=== PATIENT | female | born 1940 | race Caucasian/White ===

== ENCOUNTER 2017-02-26 09:37 | Inpatient (IN) ==
--- NOTE | 2017-02-26 10:03 | EKG Report ---
Stationary ECG Study [facility] ER Test Date: 02/26/2017 9:54:24 AM Pat Name: CONCHIS PINEDA Department: Room: Gender: F Lab Intern: : 1940 Requested by: Kole Perez Order Number: [id number] Reading MD: ABDOUL KRISHNA Intervals [place] Rate: 84 P: 999 IN: 0 QRS: 144 QRSD: 101 T: 190 QT: 369 QTc: 410 Interpretive Statements Sinus arrhythmia LOW QRS VOLTAGE IN PRECORDIAL LEADS ARM LEADS REVERSED MODERATE T-WAVE ABNORMALITY, CONSIDER INFERIOR ISCHEMIA Electronically Signed On 02-26-17 12:36:51 CDT by ABDOUL KRISHNA [id number]
[2017-02-26 10:17] LABS: Basophils % 0.1 % (0.0-0.8); Eosinophils # 0.3 10*3/uL (0.0-0.87); Eosinophils % 3.2 % (0.00-10.9); Hematocrit 31.9 VOL% (35.7-47.0); Immature Granulocytes % 0.4 %; Immature Granulocytes Absolute 0.04 #; Lymphocytes # 2.2 10*3/uL (1.4-4.0); Lymphocytes % 23.9 % (21.3-54.2); Mean Corpuscular HGB Conc 31.3 GM/DL (32-36); Mean Corpuscular Hemoglobin 30 PG (27-34); Mean Corpuscular Volume 94.7 FL (87-102); Mean Platelet Volume 9.1 FL (9.6-12.0); Monocytes # 0.7 10*3/uL (0.11-0.8); Monocytes % 7.1 % (1.7-12.7); Neutrophils % 65.3 % (38.7-73.9); Platelet Count 207 T/CUMM (130-400); Red Blood Count 3.37 MC/CUMM (3.8-5.5); Red Cell Distribution Width 14.3 % (9.3-17.3); White Blood Count 9.3 T/CUMM (4-12)
--- NOTE | 2017-02-26 10:17 | Emergency Department Note ---
Khalif Luz Brooke, am scribing for, and in the presence of, Kole Austin MD 10:12 . Geovanna Luz James D, MD, personally performed the services described in this documentation, ascribed by Mariya Cuadra in my presence, and it is both accurate and complete . Arrival - Arrival Chief Complaint: Shortness of Breath Stated Complaint: short of breath ED Nursing Triage Note: has been slightly short of breath for 2 days does have a hisotry of COPD CHF NIDM denies fever has been coughing but nothing is coming up sent by home health this morning for shortness of breath and 88% O2 sats pt is allergic to procardia not short of breath at this time Mode of Arrival: Stretcher Limitations: No Limitations Source: Patient, EMS, RN Notes Reviewed Time Seen by Provider: 02/26/17 10:05 - History of Present Illness HPI Narrative: Patient is a 76 year old female brought into the ED by EMS with c/o shortness of breath. Patient says the shortness of breath started this morning. She had a visit from her home health nurse and says her O2 sat dropped so she was told to come to the ED. She says she always sleeps sitting up. Patient also has a productive cough that started this morning. She denies having any chest pain, fever, melena, blood in stool, lower extremity edema, or wheezing. Patient has PMHx of afib, CHF, aortic valve replacement(3 years ago), bypass, HTN, depression, CVA, IDDM, recurring urinary tract infections, and right BKA. Patient is currently taking Warfarin. Allergies/Adverse Reactions: Allergies Allergy/AdvReac Type Severity Reaction Status Date / Time nifedipine [From Procardia] Allergy Severe Swelling Verified 02/26/17 10:01 of Lip/Tongue/Throat Home Medications: Home Medications Medication Instructions Recorded Confirmed Type Atorvastatin [Lipitor] 40 mg PO QAM 08/14/16 02/26/17 History Carvedilol 25 mg PO BID 08/14/16 02/26/17 History Cyclobenzaprine [Flexeril] 10 mg PO TID PRN 08/14/16 02/26/17 History Furosemide Tab [Lasix Tab] 40 mg PO DAILY 08/14/16 02/26/17 History Insulin Lispro [HumaLOG] See Protocol SUBCUT QOTHER DAY PRN 08/14/16 02/26/17 History Insulin NPH/Regular 70/30 [HumuLIN 20 unit SUBCUT 1700 08/14/16 02/26/17 History 70/30] Levothyroxine Tab [Synthroid Tab] 125 mcg PO DAILY 08/14/16 02/26/17 History Pantoprazole Tab [Protonix Tab] 40 mg PO DAILY 08/14/16 02/26/17 History Potassium Chloride [Klor-Con M20] 20 meq PO DAILY 08/14/16 02/26/17 History Warfarin [Coumadin] 5 mg PO MOWEFR 08/14/16 02/26/17 History Metformin HCl 1,000 mg PO BID 02/26/17 02/26/17 History Multivitamin with Minerals 1 each PO DAILY 02/26/17 02/26/17 History [Multivitamins with Minerals] Sertraline [Zoloft] 100 mg PO DAILY 02/26/17 02/26/17 History Warfarin [Coumadin] 4 mg PO SUTUTHSA 02/26/17 02/26/17 History Review of System - Review of System 12 point system: reviewed and no additional remarkable complaints except as stated - Review of System Constitutional: Absent: fever Respiratory: Present: cough (productive), other (shortness of breath). Absent: respiratory distress, wheezing Cardiovascular: Absent: chest pain, edema Gastrointestinal: Absent: melena, hematochezia Skin: Absent: rash Medical,Surgical,& Family Hx - Medical History Cardio: History of: Cardiac Dysrhythmia (AFIB), CHF, Hypertension Psychological: History of: Depression Neurology: History of: Cerebrovascular Accident Endocrine: History of: Diabetes Mellitus (IDDM) Respiratory: History of: Respiratory Problems (Home 02 at 2L) Genitourinary: History of: Recurring Urinary Tract Infections Musculoskeletal: History of: Amputation (right BKA) - Social History Smoking Status: Never smoker Exam Vital Signs: Vital Signs Temperature 96.9 F L 02/26/17 09:39 Pulse Rate 76 02/26/17 11:31 Respiratory Rate 18 02/26/17 11:26 Blood Pressure 130/54 02/26/17 09:39 O2 Sat by Pulse Oximetry 2 L 02/26/17 11:31 GENERAL: This is a well-nourished well-developed white female, chronically ill- appearing, in no apparent distress. VITAL SIGNS: Reviewed HEENT: Head is atraumatic and normocephalic. Pupils are equal round react to light. Extraocular movements are intact. Oropharynx is benign with moist mucous membranes. NECK: Neck is soft and supple without tenderness. There are no masses. There is no lymphadenopathy. LUNGS: Rhonchi in the right base without retractions. Chest rises symmetrically. There is no chest wall tenderness. CV: Heart is irregularly irregular without murmurs rubs or gallops. ABDOMEN: Abdomen is soft, nontender to palpation. There are no abdominal abnormal masses palpated. There is no organomegaly. Bowel sounds are present and active. SKIN: Skin is warm and dry. No rash. EXTREMITIES: Patient has full range of motion without tenderness. There is no pedal edema. NEUROLOGIC: Awake alert and oriented 4. Cranial nerves II through XII are grossly intact. Motor is 5 over 5 in all extremities bilaterally. Course - Consultations Consultation #1: Discussed with hospitalist. Patient will be admitted to their service. Time: 12:39 Results - Labs CBC & BMP: 02/26/17 10:08 02/26/17 10:08 Lab Results: I have reviewed the patients labs Labs: Laboratory Tests 02/26/17 02/26/17 10:08 10:08 INR 3.0 B-Natriuretic Peptide 30 - EKG EKG results: interpreted by ERMD - Impressions Atrial fib with rate of 84, low voltage QRS, left posterior fascicular block, T- wave inversion inferiorly. - Diagnostic Findings Procedure: Chest x-ray: image reviewed by me (Bibasilar infiltrates.), CT - chest: image reviewed by me, report reviewed by me (CT chest PA gram: No evidence of pulmonary embolus. Patient has right lower lobe pneumonia.) Disposition Clinical Impression: History of CHF (congestive heart failure), Right lower lobe pneumonia, Atrial fibrillation, Chronic anticoagulation Case discussed with: patient Disposition: Still a Patient Condition: Stable Time of Disposition: 12:38
--- NOTE | 2017-02-26 10:50 | XRay Report ---
Exam: XR chest 1V Date: 02/26/2017 10:01 AM Comparison: 09/04/2016 Indication: Shortness of breath Technique:[Portable AP sitting chest] Findings: Stable cardiomegaly in patient with prior median sternotomy and cardiac valve replacement. Arterial calcifications are noted. Limited expiratory chest with chronic scarring and reduced atelectasis at the lung bases. Persistent relative elevation of the right hemidiaphragm. Stable mediastinum with degenerative changes especially in the right shoulder. Impression: Limited expiratory chest. Prior median sternotomy and cardiac valve replacement with chronic scarring and reduced atelectasis at the lung bases with persistent relative elevation of the right hemidiaphragm. PROCEDURE INTERPRETED AT [facility] DEPARTMENT OF RADIOLOGY Final Report Signed by: Dr. Cynthia Babin
[2017-02-26 11:00] LABS: PT Patient Result 34.6 SECS
[2017-02-26] MEDS ORDERED: LEVOFLOXACIN INJ 500 MG in PREMIX 1 EACH IV STA (11:06)
[2017-02-26] MEDS ORDERED: ALBUTEROL 2.5 MG/3 ML NEB RESP TX STA (11:06)
[2017-02-26 11:07] LABS: Alanine Aminotransferase 19 U/L (13-56); Albumin 2.8 G/DL (3.4-5.0); Alkaline Phosphatase 83 U/L (45-117); Aspartate Amino Transferase 12 U/L (0-37); Bilirubin,Total < 0.39 MG/DL (0.2-1.0); Blood Urea Nitrogen 34 MG/DL (7-18); Calcium 8.9 MG/DL (8.5-10.1); Glucose 161 MG/DL (74-106); Osmolality,Calculated 291.3 MOS/KG (273-304); Potassium 3.9 MMOL/L (3.5-5.1); Sodium 141 MMOL/L (136-145); Total Protein 6.2 G/DL (6.4-8.3); Troponin I Only < 0.015 NG/ML (0.00-0.045)
[2017-02-26] MEDS ORDERED: LEVOFLOXACIN INJ 100 ML IV ONE (11:50)
--- NOTE | 2017-02-26 12:03 | CT Report ---
Exam: CT chest with contrast, PE study Date: 02/26/2017 Comparison: Chest x-ray 02/26/2017 Reason: Shortness of breath Technique: Axial images of the chest were obtained after administration of 80 cc of IV Omnipaque 350 intravenous contrast. Coronal reformatted images were also acquired. The study was performed per pulmonary embolism protocol. Total DLP: 759.00 Findings: The heart is enlarged with prior median sternotomy and aortic valve replacement. Coronary artery calcifications are identified. No evidence of aortic dissection or pulmonary emboli. There is suboptimal contrast in some of the subsegmental pulmonary arteries. 22 mm right thyroid nodule which contains multiple calcifications. Calcified nodes are identified. Calcified granulomata in the liver, spleen, and lungs. Relative elevation of the right hemidiaphragm with more prominent adjacent atelectasis/infiltration especially in the right lower lobe with minimal pleural thickening posterior laterally. Additional diffuse groundglass opacities are noted. Degenerative changes are noted. Impression: No definite pulmonary emboli are identified. The scans are minimally limited by motion artifact. Status post median sternotomy and aortic valve replacement with cardiomegaly and coronary artery calcifications. No evidence of aortic dissection. Relative elevation of the right hemidiaphragm with atelectasis/infiltration especially in the right lower lobe which can be seen with pneumonia with associated minimal pleural thickening. However follow-up chest x-ray is recommended to document clearing and exclude additional underlying pathology. No obvious mass is identified. Old healed granulomatous disease with probable chronic scarring. 22 mm indeterminate right thyroid nodule which contains multiple calcifications. Thyroid ultrasound recommended for further evaluation. This CT exam was performed using one or more the following dose reduction techniques: Automated exposure control, adjustment of the MA and/or KV according to patient size, or use of iterative reconstruction technique. PROCEDURE INTERPRETED AT [facility] DEPARTMENT OF RADIOLOGY Final Report Signed by: Dr. Cynthia Babin
--- NOTE | 2017-02-26 13:39 | Hospitalist History & Physical ---
Assessment and Plan (1) Atrial fibrillation Status: Acute Assessment and plan: The patient is currently anticoagulated with Coumadin. Patient's INR was noted at 3.0. We will consult pharmacy to assist with the management of Coumadin. Current Visit: Yes (2) Right lower lobe pneumonia Status: Acute Assessment and plan: Chest x-ray significant for right lower lobe pneumonia. Blood cultures have been obtained. We will continue empiric antibiotic coverage and await blood culture results. In addition, we will start inhaled bronchodilator treatments and provide supportive care. Current Visit: Yes (3) Diabetes Status: Acute Assessment and plan: We will start Accu-Cheks before meals and at bedtime with sliding scale coverage. We will obtain hemoglobin A1c. Current Visit: No (4) Urinary tract infection Status: Acute Current Visit: No History of Present Illness Chief complaint: Shortness of breath History of present illness: This is a chronically ill 74-year-old female that presented to the ED at [facility] this morning via EMS for the evaluation of shortness of breath. The patient has a very complex medical history significant for atrial fibrillation, chronic heart failure, chronic obstructive pulmonary disease hypertension, depression, cerebrovascular accident, insulin- dependent diabetes mellitus, chronic urinary tract infections, peripheral vascular disease. 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 The patient reported the onset of symptoms on the morning of presentation. The patient had been evaluated by a home health nurse. She was discovered to be hypoxic despite the use of home oxygen and told to come to the ED for further evaluation. The patient was seen and assessed at the time of ED presentation. Labs were obtained which was significant for red blood cell count at 3.37, hemoglobin 10.0 , hematocrit 31.9, and platelet count of 207. Coagulation panel reported INR 3.0 and PT 34.6. Chemistry panel reported sodium at 141, potassium 3.9, chloride 99, carbon dioxide 35, BUN 34, creatinine 0.90, glucose 161, calcium 8.9, troponin at less than 0.05, BNP of 30, and albumin at 2.8. Chest x-ray reported per median sternotomy and cardiac valve replacement with chronic scarring and reduced atelectasis at the lung bases with persistent relative elevation of the right hemidiaphragm. CT chest identified no definite pulmonary emboli. After brief discussion with both Dr. Austin and Dr. Teague, the patient will be admitted to the hospitalist service for continuation of care. Home medications have been reviewed and reconciled. CODE STATUS discussed; the patient is a FULL CODE. Home Medications Medication Instructions Recorded Confirmed Type Atorvastatin [Lipitor] 40 mg PO QAM 08/14/16 02/26/17 History Carvedilol 25 mg PO BID 08/14/16 02/26/17 History Cyclobenzaprine [Flexeril] 10 mg PO TID PRN 08/14/16 02/26/17 History Furosemide Tab [Lasix Tab] 40 mg PO DAILY 08/14/16 02/26/17 History Insulin Lispro [HumaLOG] See Protocol SUBCUT QOTHER DAY PRN 08/14/16 02/26/17 History Insulin NPH/Regular 70/30 [HumuLIN 20 unit SUBCUT 1700 08/14/16 02/26/17 History 70/30] Levothyroxine Tab [Synthroid Tab] 125 mcg PO DAILY 08/14/16 02/26/17 History Pantoprazole Tab [Protonix Tab] 40 mg PO DAILY 08/14/16 02/26/17 History Potassium Chloride [Klor-Con M20] 20 meq PO DAILY 08/14/16 02/26/17 History Warfarin [Coumadin] 5 mg PO MOWEFR 08/14/16 02/26/17 History Metformin HCl 1,000 mg PO BID 02/26/17 02/26/17 History Multivitamin with Minerals 1 each PO DAILY 02/26/17 02/26/17 History [Multivitamins with Minerals] Sertraline [Zoloft] 100 mg PO DAILY 02/26/17 02/26/17 History Warfarin [Coumadin] 4 mg PO SUTUTHSA 02/26/17 02/26/17 History Allergies Allergy/AdvReac Type Severity Reaction Status Date / Time nifedipine [From Procardia] Allergy Severe Swelling Verified 02/26/17 10:01 of Lip/Tongue/Throat Medical,Surgical,& Family Hx - Medical History Cardio: History of: Cardiac Dysrhythmia (AFIB), CHF, Hypertension Psychological: History of: Depression Neurology: History of: Cerebrovascular Accident Endocrine: History of: Diabetes Mellitus (IDDM) Respiratory: History of: Respiratory Problems (Home 02 at 2L) Genitourinary: History of: Recurring Urinary Tract Infections Musculoskeletal: History of: Amputation (right BKA) - Social History Smoking Status: Never smoker 12 point system: reviewed and no additional remarkable complaints except as stated Exam - Constitutional Vitals: Period Temp Pulse Resp BP Sys/Porter Pulse Ox Last 24 Hr 96.9 F 76-91 16-18 130/54 2-94 General appearance: morbidly obese - Head Head exam: Present: normal inspection, normocephalic, atraumatic - Eye Eye exam: Present: EOMI. Absent: conjunctival injection Pupils: Present: MIN, normal accommodation - ENT ENT exam: Present: normal exam, normal external ear exam, normal oropharynx - Neck Neck exam: Present: normal inspection. Absent: lymphadenopathy, meningismus, thyromegaly - Respiratory Respiratory exam: Present: rhonchi (Right lung base). Absent: clear to auscultation bilaterally, stridor, wheezes - Cardiovascular Cardiovascular exam: Present: irregular rhythm - GI/Abdominal GI/Abdominal exam: Present: normal bowel sounds, soft - Extremities Exam Extremities exam: Present: other (Right BKA) - Back Exam Back exam: Present: normal inspection - Neurological Exam Neurological exam: Present: alert, oriented X3, CN II-XII intact - Psychiatric Psychiatric exam: Present: normal affect - Skin Skin exam: Present: normal color, warm Results - Labs CBC & BMP: 02/26/17 10:08 02/26/17 10:08 Lab Results: I have reviewed the past 24 hour labs
[2017-02-26] MEDS ORDERED: DEXTROSE 50% 25 GM/50 ML VIAL IV PRN (13:49)
[2017-02-26] MEDS ORDERED: GLUCAGON 1 MG VIAL IM PRN (13:49)
[2017-02-26] MEDS ORDERED: ALBUTEROL/IPRATROPIUM 3 ML NEB RESP TX PRN (15:14)
[2017-02-26] MEDS ORDERED: ALBUTEROL 2.5 MG/3 ML NEB RESP TX PRN (15:14)
[2017-02-26] MEDS ORDERED: LEVOFLOXACIN INJ 750 MG in PREMIX 1 EACH IV SCH (16:00)
[2017-02-26] MEDS ORDERED: CYCLOBENZAPRINE 10 MG TABLET PO PRN (17:24)
[2017-02-26] MEDS: INSULIN REGULAR 100 UNIT/ML SUBCUT SCH ×2 (17:33→21:43)
[2017-02-26] MEDS ORDERED: WARFARIN 4 MG TABLET PO SCH (18:00)
[2017-02-26] MEDS: CARVEDILOL 25 MG TABLET PO SCH (21:43)
[2017-02-26] MEDS: metFORMIN 500 MG TABLET PO SCH (21:43)
[2017-02-27 05:22] LABS: Basophils % 0.3 % (0.0-0.8); Eosinophils # 0.3 10*3/uL (0.0-0.87); Eosinophils % 2.9 % (0.00-10.9); Hematocrit 32.6 VOL% (35.7-47.0); Hemoglobin 10.2 GM/DL (12.0-16.0); Immature Granulocytes % 0.4 %; Immature Granulocytes Absolute 0.04 #; Lymphocytes # 2.1 10*3/uL (1.4-4.0); Lymphocytes % 21.8 % (21.3-54.2); Mean Corpuscular HGB Conc 31.3 GM/DL (32-36); Mean Corpuscular Hemoglobin 29 PG (27-34); Mean Corpuscular Volume 93.9 FL (87-102); Mean Platelet Volume 9.5 FL (9.6-12.0); Monocytes # 0.7 10*3/uL (0.11-0.8); Neutrophils # 6.5 10*3/uL (1.4-7.4); Neutrophils % 67.6 % (38.7-73.9); Platelet Count 214 T/CUMM (130-400); Red Blood Count 3.47 MC/CUMM (3.8-5.5); Red Cell Distribution Width 14.3 % (9.3-17.3); White Blood Count 9.6 T/CUMM (4-12)
[2017-02-27 05:48] LABS: Calcium 9.3 MG/DL (8.5-10.1); Osmolality,Calculated 286.3 MOS/KG (273-304); Potassium 4.2 MMOL/L (3.5-5.1)
--- NOTE | 2017-02-27 07:55 | Physician Query Form ---
CLICK EDIT DOCUMENT TO SELECT QUERY ANSWER --> OK --> SIGN Gia Jordan RN, CCDS Certified Clinical Motor Teacher W) [phone] (f) [phone] [email or web address] PROVIDERS: Make your selection(s) from the choices in EACH section by typing an "x" and enter comments in the comment section. Please use your independent medical judgment in providing your response. This request does not imply that any particular answer is desired or expected. CLINICAL INDICATORS: (Providers should not edit this section) The medical record indicates that the patient was admitted with COPD exacerbation, "Home 02 at 2L", "discovered to be hypoxic despite the use of home oxygen", the patient was admitted and placed on 2 liters per NC. Based on the above, could you clarify the appropriate diagnosis, if significant , that supports the above abnormalities and additional evaluation, monitoring, and/or treatment rendered: ( X) Patient was treated or monitored for chronic respiratory failure ( ) Patient was not treated or monitored for chronic respiratory failure ( ) Other, please specify: ( ) Clinically unable to determine COMMENTS: PLEASE ALSO DOCUMENT RESPONSE IN PROGRESS NOTES AND/OR DISCHARGE SUMMARY Use of terms such as suspected, likely, or probable (associated with a specific diagnosis that is being evaluated, monitored, or treated as if it exists) are acceptable and can be restated in the discharge summary if not ruled out. MTDD
--- NOTE | 2017-02-27 08:19 | XRay Report ---
XR chest 1V portable Indication: Shortness of breath Comparison: 26 February 2017 Findings: The heart and mediastinum are stable in size and configuration with cardiac surgery changes. The pulmonary vascularity is normal in caliber. There is increased bilateral lower lung density, similar to previous exam. No other lung infiltrates, effusions, pneumothorax or other abnormality is demonstrated. Impression: No significant changes. PROCEDURE INTERPRETED AT [facility] DEPARTMENT OF RADIOLOGY Final Report Signed by: Dr. Zafar Mckeon
[2017-02-27] MEDS ORDERED: DEXTROSE 50% 25 GM/50 ML VIAL IV PRN (08:29)
[2017-02-27] MEDS ORDERED: GLUCAGON 1 MG VIAL IM PRN (08:29)
[2017-02-27] MEDS: ATORVASTATIN 40 MG TABLET PO SCH (08:55)
[2017-02-27] MEDS: metFORMIN 500 MG TABLET PO SCH ×2 (08:55→22:50)
[2017-02-27] MEDS: PANTOPRAZOLE 40 MG TABLET PO SCH (08:55)
[2017-02-27] MEDS: LEVOTHYROXINE 125 MCG TABLET PO SCH (08:55)
[2017-02-27] MEDS: MULTIVITAMIN (CENTRUM) TABLET PO SCH (08:55)
[2017-02-27] MEDS: CARVEDILOL 25 MG TABLET PO SCH ×2 (08:55→22:50)
[2017-02-27] MEDS: SERTRALINE 100 MG TABLET PO SCH (08:55)
[2017-02-27] MEDS: FUROSEMIDE 40 MG TABLET PO SCH (08:55)
[2017-02-27] MEDS: POTASSIUM CHLORIDE 20 MEQ TABLET PO SCH (08:55)
--- NOTE | 2017-02-27 08:55 | Hospitalist Progress Note ---
Assessment and Plan - Time spent with patient Time spent with patient: Greater than 30 minutes (1) Right lower lobe pneumonia Status: Acute Assessment and plan: Continue IV levaquin. Resp care. NEB treatment. Current Visit: Yes (2) Diabetes Status: Acute Assessment and plan: Continue insulin Current Visit: No (3) HTN (hypertension) Status: Acute Assessment and plan: Resume home meds. Current Visit: No (4) Coumadin toxicity Status: Acute Assessment and plan: Monitor INR Current Visit: No (5) Atrial fibrillation Status: Acute Current Visit: Yes (6) Chronic anticoagulation Status: Acute Current Visit: Yes (7) Hx of CABG Status: Acute Current Visit: No (8) Hx of right BKA Status: Acute Current Visit: No Hospitalist: Subjective Interval history: No overnight acute event. Breathing better. On IV antibiotics and NEB treatment for pneumonia. Appetite is ok. Deny fever or diarrhea. Exam - Constitutional Vitals: Period Temp Pulse Resp BP Sys/Porter Pulse Ox Last 24 Hr 96.1 F-98.2 F 76-102 16-22 94-149/54-88 2-98 Exam: General: Lying in bed supine. pale. AAOx3 HEENT: AT NC EOMI PERRLA Normal lips and gum. Lungs: Decreased breath sound at b/l lower lobes. No wheezing. Abd: +BS NT ND Skin: Pale. No hives. Neuro: Lying in bed. AAOx3. Results - Labs CBC & BMP: 02/27/17 04:27 02/27/17 04:27
[2017-02-27] MEDS: INSULIN REGULAR 100 UNIT/ML SUBCUT SCH ×3 (08:56→22:51)
[2017-02-27] MEDS ORDERED: DEXTROSE 50% 25 GM/50 ML SYRINGE IV PRN (09:00)
[2017-02-27] MEDS: LEVOFLOXACIN INJ 750 MG in PREMIX 1 EACH IV SCH (12:31)
[2017-02-27] MEDS ORDERED: PROMETHAZINE 25 MG/1 ML VIAL IM PRN (14:36)
[2017-02-27] MEDS ORDERED: ONDANSETRON 4 MG/2 ML VIAL IM PRN (14:36)
[2017-02-27] MEDS ORDERED: ONDANSETRON 4 MG/2 ML VIAL IV PRN (14:45)
[2017-02-27] MEDS ORDERED: INSULIN NPH/REGULAR 70/30 100 UNIT/ML SUBCUT SCH (17:00)
[2017-02-27] MEDS ORDERED: WARFARIN 5 MG TABLET PO SCH (18:00)
[2017-02-27] MEDS ORDERED: GABAPENTIN 600 MG TABLET PO PRN (19:33)
[2017-02-27] MEDS: VITAMIN A & D OINT 56.7 GM TUBE TOP SCH ×2 (22:51→22:52)
[2017-02-28 03:47] LABS: Calcium 9.1 MG/DL (8.5-10.1); Magnesium 1.9 MG/DL (1.8-2.4); Osmolality,Calculated 289.1 MOS/KG (273-304); Potassium 4.4 MMOL/L (3.5-5.1)
[2017-02-28 06:16] LABS: INR 2.9
[2017-02-28 06:17] LABS: PT Patient Result 33.2 SECS
[2017-02-28] MEDS: INSULIN REGULAR 100 UNIT/ML SUBCUT SCH ×2 (09:34→12:46)
[2017-02-28] MEDS: CARVEDILOL 25 MG TABLET PO SCH (09:35)
[2017-02-28] MEDS: MULTIVITAMIN (CENTRUM) TABLET PO SCH (09:35)
[2017-02-28] MEDS: metFORMIN 500 MG TABLET PO SCH (09:35)
[2017-02-28] MEDS: PANTOPRAZOLE 40 MG TABLET PO SCH (09:36)
[2017-02-28] MEDS: FUROSEMIDE 40 MG TABLET PO SCH (09:36)
[2017-02-28] MEDS: LEVOTHYROXINE 125 MCG TABLET PO SCH (09:36)
[2017-02-28] MEDS: SERTRALINE 100 MG TABLET PO SCH (09:36)
[2017-02-28] MEDS: VITAMIN A & D OINT 56.7 GM TUBE TOP SCH (09:36)
[2017-02-28] MEDS: POTASSIUM CHLORIDE 20 MEQ TABLET PO SCH (09:36)
[2017-02-28] MEDS: ATORVASTATIN 40 MG TABLET PO SCH (09:36)
--- NOTE | 2017-02-28 12:07 | Discharge Summary ---
<Nohemy Cotton - Last Filed: 02/28/17 12:07> Hospital Course - Hospital Course Hospital Course: This is a chronically ill 74-year-old female that presented to the ED at [facility] on the morning of February 26, 2017 via EMS for the evaluation of shortness of breath. The patient has a very complex medical history significant for atrial fibrillation, chronic heart failure, chronic obstructive pulmonary disease hypertension, depression, cerebrovascular accident , insulin-dependent diabetes mellitus, chronic urinary tract infections, peripheral vascular disease. 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 The patient reported the onset of symptoms on the morning of presentation. The patient had been evaluated by a home health nurse. She was discovered to be hypoxic despite the use of home oxygen and told to come to the ED for further evaluation. The patient was seen and assessed at the time of ED presentation. Labs were obtained which was significant for red blood cell count at 3.37, hemoglobin 10.0 , hematocrit 31.9, and platelet count of 207. Coagulation panel reported INR 3.0 and PT 34.6. Chemistry panel reported sodium at 141, potassium 3.9, chloride 99, carbon dioxide 35, BUN 34, creatinine 0.90, glucose 161, calcium 8.9, troponin at less than 0.05, BNP of 30, and albumin at 2.8. Chest x-ray reported per median sternotomy and cardiac valve replacement with chronic scarring and reduced atelectasis at the lung bases with persistent relative elevation of the right hemidiaphragm. CT chest identified no definite pulmonary emboli. The patient was subsequently admitted to the hospitalist service for continuation of care. Blood cultures were obtained and empiric antibiotic coverage was initiated. The patient was gently rehydrated and inhaled bronchodilators were administered. The patient's condition slowly improved. Blood cultures reported no growth to date. The patient's condition is stable. She has not experienced any significant overnight events. Today, we feel that she is indeed appropriate for discharge to follow-up with her primary care physician as directed. Diagnosis - Discharge Diagnosis (1) Atrial fibrillation Status: Acute (2) Right lower lobe pneumonia Status: Acute (3) Diabetes Status: Acute (4) Urinary tract infection Status: Acute Specialty Discharge - Follow Up or Referrals Discharge Plan - Discharge Data Disposition: Home Health Service - Discharge Medications New Insulin NPH/Regular 70/30 [HumuLIN 70/30] 20 unit SUBCUT 1700 #1000 unit Continue Warfarin [Coumadin] 5 mg PO MOWEFR Levothyroxine Tab [Synthroid Tab] 125 mcg PO DAILY Carvedilol 25 mg PO BID Pantoprazole Tab [Protonix Tab] 40 mg PO DAILY Furosemide Tab [Lasix Tab] 40 mg PO DAILY Cyclobenzaprine [Flexeril] 10 mg PO TID PRN PRN Reason: Muscle Spasm Insulin Lispro [HumaLOG] See Protocol SUBCUT QOTHER DAY PRN PRN Reason: Glucose Management Warfarin [Coumadin] 4 mg PO SUTUTHSA Multivitamin with Minerals [Multivitamins with Minerals] 1 each PO DAILY Sertraline [Zoloft] 100 mg PO DAILY Gabapentin Cap/Tab [Neurontin Cap/Tab] 600 mg PO TID PRN PRN Reason: Pain Atorvastatin [Lipitor] 40 mg PO QAM Potassium Chloride [Klor-Con M20] 20 meq PO DAILY Metformin HCl 1,000 mg PO BID - Follow Up or Referral - Forms/Instructions Instructions: Warfarin (By mouth) Exam - Constitutional Vitals: Period Temp Pulse Resp BP Sys/Porter Pulse Ox Last 24 Hr 96.9 F-98.1 F 77-108 18-20 127-142/60-70 93-99 Discharge Results Procedures and tests throughout hospitalization: Pending Orders 02/26/17 11:56 Blood Culture Stat 02/26/17 15:14 Influenza A & B Antigen Panel Stat Legionella Ag, Urine Stat Procalcitonin, S Stat 03/01/17 04:00 BMP w/ Mg [Basic Metabolic Panel w/Mg] IN AM Comp Blood Count Auto Diff IN AM Labs on day of discharge: Labs from last 24 hours 02/28/17 02/28/17 02/28/17 07:32 02:39 02:39 INR 2.9 PT Patient/Control Mix 33.2 Sodium 142 Potassium 4.4 Chloride 99 Carbon Dioxide 34 H Anion Gap 13.4 BUN 31 H Creatinine 0.90 GFR Calculation 74 BUN/Creatinine Ratio 34.00 H Glucose 102 POC Glucose 82 Calculated Osmolality 289.1 Calcium 9.1 Magnesium 1.9 02/27/17 02/27/17 21:16 16:27 INR PT Patient/Control Mix Sodium Potassium Chloride Carbon Dioxide Anion Gap BUN Creatinine GFR Calculation BUN/Creatinine Ratio Glucose POC Glucose 149 H 124 H Calculated Osmolality Calcium Magnesium Preliminary micro results at discharge 02/26/17 11:56 Blood Culture - Preliminary Blood No growth at 1 day 02/26/17 11:56 Blood Culture - Preliminary Blood No growth at 1 day DS: Provider Date of admission: 02/26/17 13:21 Primary care physician: . No PCP Attending physician on admission: James Teague MD Consults: 02/26/17 13:50 Consult to Pharmacy [CONS] Routine Reason for Pharmacy Consult: Other Comment: [facility] management Discharging clinician: Nohemy Cotton CNP <Luis Carlos Carson - Last Filed: 02/28/17 13:21> Discharge Plan - Discharge Data Condition at Discharge: Stable Discharge Diet: diabetic diet, heart healthy Activity: increase activity as tolerated Hygiene: may tub bathe, other (With assistance as needed) Weight Bearing at Discharge: weight bear as tolerated Driving: other (Driving expect) Contact your physician if you experience:: fever over 101, Nausea/Vomiting, Shortness of breath, pain uncontrolled by pain medications Exam - Constitutional General appearance: over weight - Head Head exam: Present: normocephalic, atraumatic - Eye Eye exam: Present: EOMI Pupils: Present: MIN - Respiratory Respiratory exam: Present: clear to auscultation bilaterally - Cardiovascular Cardiovascular exam: Present: regular rate and rhythm - Extremities Exam Extremities exam: Present: other (Right-sided BKA otherwise quite good range of motion) - Neurological Exam Neurological exam: Present: alert, oriented X3, CN II-XII intact - Psychiatric Psychiatric exam: Present: normal affect, normal mood - Skin Skin exam: Present: normal color, warm, dry
[2017-02-28] MEDS: LEVOFLOXACIN INJ 750 MG in PREMIX 1 EACH IV SCH (12:46)
[2017-02-28 13:43] VITALS: BP 120/57
--- NOTE | 2017-03-04 13:47 | Physician Query Form ---
CLICK EDIT DOCUMENT TO SELECT QUERY ANSWER --> OK --> SIGN Gia Jordan RN, CCDS Certified Clinical Manager Baby W) [phone] (f) [phone] [email or web address] PROVIDERS: Make your selection(s) from the choices in EACH section by typing an "x" and enter comments in the comment section. Please use your independent medical judgment in providing your response. This request does not imply that any particular answer is desired or expected. CLINICAL INDICATORS: (Providers should not edit this section) The medical record indicates that the patient was admitted with pneumonia, COPD , History of CHF, BNP 30 and the patient was maintained on Coreg and Lasix. Please provide further specificity regarding CHF. ACUITY: ( ) Acute ( ) Chronic (x ) Acute on Chronic ( ) Clinically unable to determine TYPE: ( ) Systolic (HFrEF - heart failure with reduced systolic function/EF) ( ) Diastolic (HFpEF - heart failure with preserved systolic function/EF) ( ) Combined Systolic/Diastolic ( ) Other, please specify: (x ) Clinically unable to determine ( ) Past Medical History of Systolic CHF ( ) Past Medical History of Diastolic CHF ( x) Clinically unable to determine COMMENTS: PLEASE ALSO DOCUMENT RESPONSE IN PROGRESS NOTES AND/OR DISCHARGE SUMMARY Use of terms such as suspected, likely, or probable (associated with a specific diagnosis that is being evaluated, monitored, or treated as if it exists) are acceptable and can be restated in the discharge summary if not ruled out. MTDD
== END 2017-02-28 16:00 | disposition home health service (06) | DRG 190 ==
LOC: EDBD → EDUNIT# → N.ED 09:37 → SUATTDRO 13:21 → N.EDINP 13:21 → N.2E 15:00
PROVIDERS: ADMIT Internal Medicine; ATTEND Internal Medicine Infectious Disease

== ENCOUNTER 2017-05-29 15:51 | Inpatient (IN) ==
[2017-05-29 16:42] LABS: Basophils % 0.2 % (0.0-0.8); Eosinophils # 0.2 10*3/uL (0.0-0.87); Eosinophils % 2.2 % (0.00-10.9); Hematocrit 35.5 VOL% (35.7-47.0); Hemoglobin 11.2 GM/DL (12.0-16.0); Immature Granulocytes % 0.5 %; Immature Granulocytes Absolute 0.05 #; Lymphocytes # 0.9 10*3/uL (1.4-4.0); Lymphocytes % 9.3 % (21.3-54.2); Mean Corpuscular HGB Conc 31.5 GM/DL (32-36); Mean Corpuscular Hemoglobin 30 PG (27-34); Mean Corpuscular Volume 96.2 FL (87-102); Mean Platelet Volume 9.1 FL (9.6-12.0); Monocytes # 0.7 10*3/uL (0.11-0.8); Neutrophils % 80.8 % (38.7-73.9); Platelet Count 252 T/CUMM (130-400); Red Blood Count 3.69 MC/CUMM (3.8-5.5); Red Cell Distribution Width 12.6 % (9.3-17.3); White Blood Count 9.9 T/CUMM (4-12)
[2017-05-29 16:51] LABS: Partial Thromboplastin Time 39.4 SECS (0-40)
[2017-05-29 16:56] LABS: INR 2.5
[2017-05-29 16:57] LABS: PT Patient Result 25.7 SECS
[2017-05-29 17:06] LABS: Alanine Aminotransferase 19 U/L (13-56); Albumin 3.2 G/DL (3.4-5.0); Alkaline Phosphatase 91 U/L (45-117); Aspartate Amino Transferase 14 U/L (0-37); Bilirubin,Total < 0.39 MG/DL (0.2-1.0); Blood Urea Nitrogen 20 MG/DL (7-18); Calcium 8.5 MG/DL (8.5-10.1); Glucose 160 MG/DL (74-106); Osmolality,Calculated 284.4 MOS/KG (273-304); Potassium 3.7 MMOL/L (3.5-5.1); Sodium 140 MMOL/L (136-145); Total Protein 7.1 G/DL (6.4-8.3)
[2017-05-29 17:07] LABS: Lactic Acid 3.1 MMOL/L (0.4-2.0)
[2017-05-29 17:11] LABS: Troponin I Only < 0.015 NG/ML (0.00-0.045)
[2017-05-29] MEDS ORDERED: cefTRIAXone 1,000 MG in SODIUM CHLORIDE 0.9% 100 ML IV STA (17:30)
[2017-05-29] MEDS ORDERED: ALBUTEROL/IPRATROPIUM 3 ML NEB RESP TX STA (17:34)
[2017-05-29] MEDS ORDERED: HYDROcodone/CHLORPHENIRAMINE ER 5 ML UDCUP PO ONE ×2 (17:34→18:04)
[2017-05-29] MEDS ORDERED: cefTRIAXone 1,000 MG VIAL ONE (17:35)
[2017-05-29] MEDS ORDERED: cloNIDine 0.1 MG TABLET PO STA (18:01)
[2017-05-29] MEDS ORDERED: cloNIDine 0.1 MG TABLET ONE (18:05)
[2017-05-29] MEDS ORDERED: ACETAMINOPHEN 325 MG TABLET PO PRN (18:45)
[2017-05-29] MEDS ORDERED: DOCUSATE SODIUM 100 MG CAPSULE PO PRN (18:45)
[2017-05-29] MEDS ORDERED: ALBUTEROL/IPRATROPIUM 3 ML NEB RESP TX PRN (18:45)
[2017-05-29] MEDS ORDERED: DEXTROSE 50% 25 GM/50 ML VIAL IV PRN (18:45)
[2017-05-29] MEDS ORDERED: ONDANSETRON 4 MG/2 ML VIAL IV PRN (18:45)
[2017-05-29] MEDS ORDERED: GLUCAGON 1 MG VIAL IM PRN (18:45)
[2017-05-29] MEDS ORDERED: MORPHINE 2 MG/1 ML SYRINGE IV PRN (18:45)
[2017-05-29] MEDS ORDERED: LACTULOSE 20 GM/30 ML UDCUP PO PRN (18:45)
[2017-05-29] MEDS ORDERED: LEVOFLOXACIN INJ 750 MG in PREMIX 1 EACH IV SCH (19:00)
[2017-05-29] MEDS ORDERED: LORazepam 0.5 MG TABLET PO PRN (19:18)
[2017-05-29] MEDS: SODIUM CHLORIDE 0.9% 1,000 ML IV SCH (19:48)
[2017-05-29] MEDS: cefTRIAXone 1,000 MG in SYRINGE 1 EACH IV SCH (19:52)
[2017-05-29] MEDS: AZITHROMYCIN INJ 500 MG in SODIUM CHLORIDE 0.9% 250 ML IV SCH (19:57)
[2017-05-29 20:22] LABS: Magnesium 1.7 MG/DL (1.8-2.4); Thyroid Stimulating Hormone 2.65 uIU/ml (0.358-3.74)
[2017-05-29] MEDS: CARVEDILOL 25 MG TABLET PO SCH (20:24)
[2017-05-29] MEDS: GABAPENTIN 600 MG TABLET PO SCH (20:24)
[2017-05-29] MEDS: metFORMIN 500 MG TABLET PO SCH (20:24)
[2017-05-29] MEDS: INSULIN LISPRO 100 UNIT/ML SUBCUT SCH (20:24)
[2017-05-30] MEDS: SODIUM CHLORIDE 0.9% 1,000 ML IV SCH ×3 (05:38→20:50)
[2017-05-30] MEDS: LEVOTHYROXINE 125 MCG TABLET PO SCH (06:01)
[2017-05-30 06:31] LABS: Basophils % 0.4 % (0.0-0.8); Eosinophils # 0.1 10*3/uL (0.0-0.87); Eosinophils % 0.4 % (0.00-10.9); Hematocrit 37.7 VOL% (35.7-47.0); Hemoglobin 11.4 GM/DL (12.0-16.0); Immature Granulocytes Absolute 0.23 #; Lymphocytes # 1.4 10*3/uL (1.4-4.0); Mean Corpuscular HGB Conc 30.2 GM/DL (32-36); Mean Corpuscular Hemoglobin 30 PG (27-34); Mean Corpuscular Volume 99.7 FL (87-102); Mean Platelet Volume 9.4 FL (9.6-12.0); Monocytes # 0.8 10*3/uL (0.11-0.8); Monocytes % 7.2 % (1.7-12.7); Neutrophils # 8.9 10*3/uL (1.4-7.4); Platelet Count 230 T/CUMM (130-400); Red Blood Count 3.78 MC/CUMM (3.8-5.5); Red Cell Distribution Width 12.8 % (9.3-17.3); White Blood Count 11.4 T/CUMM (4-12)
[2017-05-30 06:57] LABS: Calcium 8.6 MG/DL (8.5-10.1); Osmolality,Calculated 287.1 MOS/KG (273-304); Potassium 4.9 MMOL/L (3.5-5.1); Risk Ratio 2.39; VLDL CHOLESTEROL 32.6 MG/DL
[2017-05-30] MEDS: INSULIN LISPRO 100 UNIT/ML SUBCUT SCH ×4 (07:51→20:58)
[2017-05-30] MEDS ORDERED: SERTRALINE 100 MG TABLET PO SCH (09:00)
[2017-05-30] MEDS ORDERED: PANTOPRAZOLE 40 MG TABLET PO SCH (09:00)
[2017-05-30] MEDS: FUROSEMIDE 40 MG TABLET PO SCH (09:17)
[2017-05-30] MEDS: CARVEDILOL 25 MG TABLET PO SCH ×2 (09:17→20:43)
[2017-05-30] MEDS: ATORVASTATIN 40 MG TABLET PO SCH (09:17)
[2017-05-30] MEDS: POTASSIUM CHLORIDE 20 MEQ TABLET PO SCH (09:17)
[2017-05-30] MEDS: GABAPENTIN 600 MG TABLET PO SCH (09:17)
[2017-05-30] MEDS: metFORMIN 500 MG TABLET PO SCH (09:17)
[2017-05-30] MEDS: ALBUTEROL/IPRATROPIUM 3 ML NEB RESP TX SCH ×3 (10:26→19:11)
[2017-05-30 10:34] LABS: ABG Base Excess 3.8 MMOL/L (-2.5-2.5); ABG HCO3 27.7 MMOL/L (20-26); ABG Oxygen Saturation 93.1 % (95-100); ABG PO2 73.7 MM HG (80-95); ABG TCO2 32.3 MMOL/L (23-27)
[2017-05-30 10:36] LABS: ABG PCO2 87.1 MM HG (35-48); ABG PH 7.204 (7.35-7.45)
[2017-05-30 12:58] LABS: ABG Base Excess 3.4 MMOL/L (-2.5-2.5); ABG HCO3 27.4 MMOL/L (20-26); ABG Oxygen Saturation 96.3 % (95-100); ABG PO2 90.2 MM HG (80-95); ABG TCO2 31.7 MMOL/L (23-27)
[2017-05-30 13:00] LABS: ABG PCO2 84.9 MM HG (35-48); ABG PH 7.206 (7.35-7.45)
[2017-05-30] MEDS ORDERED: SUCCINYLCHOLINE 200 MG/10 ML VIAL IV ONE (14:00)
[2017-05-30] MEDS ORDERED: ETOMIDATE 20 MG/10 ML VIAL IV ONE ×2 (14:00→14:20)
[2017-05-30] MEDS ORDERED: SUCCINYLCHOLINE 200 MG/10 ML VIAL ONE (14:20)
[2017-05-30] MEDS ORDERED: PROPOFOL 1,000 MG/100 ML BOTTLE IV ONE (14:27)
[2017-05-30] MEDS: PROPOFOL 1,000 MG/100 ML BOTTLE IV SCH ×2 (14:30→22:43)
[2017-05-30 15:02] LABS: ABG Base Excess 6.5 MMOL/L (-2.5-2.5); ABG HCO3 32.7 MMOL/L (20-26); ABG Oxygen Saturation 98.3 % (95-100); ABG PH 7.377 (7.35-7.45); ABG PO2 114.3 MM HG (80-95); ABG TCO2 34.5 MMOL/L (23-27)
[2017-05-30] MEDS ORDERED: PHENYLEPHRINE DRIP 40 MG/250 ML PREMIX IV ONE (15:28)
[2017-05-30] MEDS ORDERED: PHENYLEPHRINE DRIP 40 MG/250 ML PREMIX IV SCH (16:00)
[2017-05-30] MEDS ORDERED: SODIUM CHLORIDE 0.9% 500 ML IV ONE (16:12)
[2017-05-30] MEDS: AZITHROMYCIN INJ 500 MG in SODIUM CHLORIDE 0.9% 250 ML IV SCH (19:25)
[2017-05-30] MEDS: cefTRIAXone 1,000 MG in SYRINGE 1 EACH IV SCH (20:39)
[2017-05-30] MEDS: WARFARIN 5 MG TABLET PO SCH (20:43)
[2017-05-30 21:57] LABS: Apearance,Urine CLEAR (Clear); Bacteria,Urine Moderate /HPF (Few); Bilirubin,Urine Negative (Negative); Blood, Urine Small mg/dL (Negative); Glucose,Urine (UA) Negative (Negative); Hyaline Casts,Urine 4 /LPF (0-3); Ketones,Urine 5 mg/dL (Negative); Mucus,Urine Occasional /LPF (Occasional); Nitrite,Urine Negative (Negative); Protein,Urine Negative; RBC,Urine 2 /HPF (0-4); Squamous Epithelial Cell,Urine Occasional /HPF (0-10); Transitional Epi Cells,Urine Occasional /HPF (<1); Urine Color Straw (Yellow); Urine Specific Gravity 1.008 (1.001-1.035); Urine Urobilinogen < 2.0 EU/DL (0.2-1.0); WBC,Urine 6 /HPF (0-6)
[2017-05-31] MEDS: SODIUM CHLORIDE 0.9% 1,000 ML IV SCH ×5 (00:21→21:36)
[2017-05-31 03:04] LABS: ABG Base Excess 6.3 MMOL/L (-2.5-2.5); ABG Oxygen Saturation 98.3 % (95-100); ABG PCO2 39.4 MM HG (35-48); ABG PH 7.499 (7.35-7.45); ABG PO2 108.8 MM HG (80-95); ABG TCO2 31.2 MMOL/L (23-27); Pt O2 Delivery Device Ventilator
[2017-05-31 03:52] LABS: Basophils % 0.1 % (0.0-0.8); Eosinophils # 0.1 10*3/uL (0.0-0.87); Eosinophils % 1.6 % (0.00-10.9); Hematocrit 26.6 VOL% (35.7-47.0); Immature Granulocytes % 0.5 %; Immature Granulocytes Absolute 0.04 #; Lymphocytes # 1.6 10*3/uL (1.4-4.0); Lymphocytes % 21.5 % (21.3-54.2); Mean Corpuscular HGB Conc 30.8 GM/DL (32-36); Mean Corpuscular Hemoglobin 30 PG (27-34); Mean Corpuscular Volume 95.7 FL (87-102); Mean Platelet Volume 9.7 FL (9.6-12.0); Monocytes # 0.6 10*3/uL (0.11-0.8); Monocytes % 8.5 % (1.7-12.7); Neutrophils % 67.8 % (38.7-73.9); Platelet Count 182 T/CUMM (130-400); Red Blood Count 2.78 MC/CUMM (3.8-5.5); Red Cell Distribution Width 12.8 % (9.3-17.3); White Blood Count 7.3 T/CUMM (4-12)
[2017-05-31 04:00] LABS: Hemoglobin 8.2 GM/DL (12.0-16.0)
[2017-05-31 04:16] LABS: INR 3.7
[2017-05-31 04:19] LABS: Calcium 7.6 MG/DL (8.5-10.1); Magnesium 1.6 MG/DL (1.8-2.4); Potassium 3.7 MMOL/L (3.5-5.1)
[2017-05-31 04:35] LABS: Albumin 2.1 G/DL (3.4-5.0); Calcium 7.5 MG/DL (8.5-10.1); Phosphorous 2.3 MG/DL (2.5-4.9); Potassium 3.8 MMOL/L (3.5-5.1)
[2017-05-31 05:00] LABS: Band Neutrophils 2 % (0-10); Eosinophils 1 % (0-10); Lymphocytes 20 % (20-55); Platelet Estimate Normal; Segmented Neutrophils 74 % (50-85); Total Cells Counted 100
[2017-05-31] MEDS: LEVOTHYROXINE 125 MCG TABLET PO SCH (06:10)
[2017-05-31] MEDS: PROPOFOL 1,000 MG/100 ML BOTTLE IV SCH ×4 (06:25→21:37)
[2017-05-31] MEDS: ALBUTEROL/IPRATROPIUM 3 ML NEB RESP TX SCH ×4 (07:02→19:35)
[2017-05-31] MEDS ORDERED: MAGNESIUM SULF RIDER 4 GM in PREMIX 1 EACH IV PRN (08:06)
[2017-05-31] MEDS ORDERED: DEXTROSE 50% 25 GM/50 ML VIAL IV PRN (08:32)
[2017-05-31] MEDS ORDERED: GLUCAGON 1 MG VIAL IM PRN (08:32)
[2017-05-31 09:23] LABS: Phosphorous 2.6 MG/DL (2.5-4.9); Prealbumin 15.2 MG/DL (20-40)
[2017-05-31] MEDS: FUROSEMIDE 40 MG TABLET PO SCH (10:06)
[2017-05-31] MEDS: CARVEDILOL 25 MG TABLET PO SCH ×2 (10:06→21:23)
[2017-05-31] MEDS: POTASSIUM CHLORIDE 20 MEQ TABLET PO SCH (10:06)
[2017-05-31] MEDS: ATORVASTATIN 40 MG TABLET PO SCH (10:07)
[2017-05-31] MEDS: LANSOPRAZOLE ODT 30 MG TABLET PO SCH (10:07)
[2017-05-31] MEDS: OSELTAMIVIR 6 MG/ML 60 ML/BOTTLE PO SCH ×2 (10:08→21:24)
[2017-05-31] MEDS: MAGNESIUM SULF RIDER 2 GM in PREMIX 1 EACH IV PRN (11:29)
[2017-05-31] MEDS: INSULIN LISPRO 100 UNIT/ML SUBCUT SCH ×2 (12:32→19:35)
[2017-05-31] MEDS ORDERED: hydrALAZINE 20 MG/1 ML VIAL IV PRN (17:43)
[2017-05-31] MEDS: AZITHROMYCIN INJ 500 MG in SODIUM CHLORIDE 0.9% 250 ML IV SCH (18:34)
[2017-05-31] MEDS: ACETYLCYSTEINE 20% 800 MG/4 ML VIAL RESP TX SCH (19:36)
[2017-05-31] MEDS: cefTRIAXone 1,000 MG in SYRINGE 1 EACH IV SCH (21:22)
[2017-06-01] MEDS: ACETYLCYSTEINE 20% 800 MG/4 ML VIAL RESP TX SCH ×4 (00:53→20:04)
[2017-06-01] MEDS: PROPOFOL 1,000 MG/100 ML BOTTLE IV SCH ×7 (01:00→21:48)
[2017-06-01] MEDS: INSULIN LISPRO 100 UNIT/ML SUBCUT SCH ×5 (01:10→18:46)
[2017-06-01 03:33] LABS: ABG Base Excess 5.5 MMOL/L (-2.5-2.5); ABG HCO3 29.2 MMOL/L (20-26); ABG Oxygen Saturation 98.6 % (95-100); ABG PCO2 39.2 MM HG (35-48); ABG PO2 133.9 MM HG (80-95); ABG TCO2 30.4 MMOL/L (23-27); Allen Test Positive; Pt O2 Delivery Device Ventilator
[2017-06-01 04:44] LABS: Basophils % 0.2 % (0.0-0.8); Eosinophils # 0.3 10*3/uL (0.0-0.87); Eosinophils % 3.7 % (0.00-10.9); Hematocrit 26.6 VOL% (35.7-47.0); Hemoglobin 8.3 GM/DL (12.0-16.0); Immature Granulocytes % 0.6 %; Immature Granulocytes Absolute 0.05 #; Lymphocytes # 1.8 10*3/uL (1.4-4.0); Mean Corpuscular HGB Conc 31.2 GM/DL (32-36); Mean Corpuscular Hemoglobin 29 PG (27-34); Mean Corpuscular Volume 94.3 FL (87-102); Mean Platelet Volume 9.6 FL (9.6-12.0); Monocytes # 0.7 10*3/uL (0.11-0.8); Monocytes % 8.1 % (1.7-12.7); Neutrophils # 5.3 10*3/uL (1.4-7.4); Neutrophils % 65.4 % (38.7-73.9); Platelet Count 165 T/CUMM (130-400); Red Blood Count 2.82 MC/CUMM (3.8-5.5); White Blood Count 8.1 T/CUMM (4-12)
[2017-06-01 04:47] LABS: INR 3.4
[2017-06-01 05:18] LABS: Calcium 7.6 MG/DL (8.5-10.1); Osmolality,Calculated 289.7 MOS/KG (273-304)
[2017-06-01 05:27] LABS: Magnesium 1.9 MG/DL (1.8-2.4); Prealbumin 12.2 MG/DL (20-40)
[2017-06-01] MEDS: SODIUM CHLORIDE 0.9% 1,000 ML IV SCH ×3 (05:29→21:49)
[2017-06-01] MEDS: LEVOTHYROXINE 125 MCG TABLET PO SCH (06:21)
[2017-06-01] MEDS: POTASSIUM CHLORIDE RIDER 10 MEQ in PREMIX 1 EACH IV PRN ×7 (07:57→18:44)
[2017-06-01] MEDS: ALBUTEROL/IPRATROPIUM 3 ML NEB RESP TX SCH ×4 (08:03→20:03)
[2017-06-01] MEDS ORDERED: BISACODYL 10 MG SUPP RECTAL PRN (08:30)
[2017-06-01] MEDS: CARVEDILOL 25 MG TABLET PO SCH ×2 (09:37→21:55)
[2017-06-01] MEDS: LANSOPRAZOLE ODT 30 MG TABLET PO SCH (09:37)
[2017-06-01] MEDS: ATORVASTATIN 40 MG TABLET PO SCH (09:37)
[2017-06-01] MEDS: POTASSIUM CHLORIDE 20 MEQ TABLET PO SCH (09:37)
[2017-06-01] MEDS: FUROSEMIDE 40 MG TABLET PO SCH (09:37)
[2017-06-01] MEDS: OSELTAMIVIR 6 MG/ML 60 ML/BOTTLE PO SCH ×2 (09:38→21:55)
[2017-06-01] MEDS: AZITHROMYCIN INJ 500 MG in SODIUM CHLORIDE 0.9% 250 ML IV SCH (19:25)
[2017-06-01] MEDS: MORPHINE 2 MG/1 ML SYRINGE IV PRN (19:25)
[2017-06-01] MEDS: cefTRIAXone 1,000 MG in SYRINGE 1 EACH IV SCH (21:55)
[2017-06-02] MEDS: INSULIN LISPRO 100 UNIT/ML SUBCUT SCH ×4 (00:04→17:41)
[2017-06-02] MEDS: ACETYLCYSTEINE 20% 800 MG/4 ML VIAL RESP TX SCH ×4 (00:04→20:22)
[2017-06-02] MEDS: PROPOFOL 1,000 MG/100 ML BOTTLE IV SCH ×5 (02:19→21:54)
[2017-06-02 03:17] LABS: ABG Base Excess 1.8 MMOL/L (-2.5-2.5); ABG HCO3 26.1 MMOL/L (20-26); ABG PCO2 40.9 MM HG (35-48); ABG PH 7.419 (7.35-7.45); ABG TCO2 23.8 MMOL/L (23-27); Allen Test Positive; Pt O2 Delivery Device Ventilator
[2017-06-02] MEDS: SODIUM CHLORIDE 0.9% 1,000 ML IV SCH ×2 (05:04→16:02)
[2017-06-02 06:01] LABS: Eosinophils % 0.3 % (0.00-10.9); Hemoglobin 6.6 GM/DL (12.0-16.0); Immature Granulocytes Absolute 0.09 #; Lymphocytes # 1.1 10*3/uL (1.4-4.0); Lymphocytes % 11.8 % (21.3-54.2); Mean Corpuscular HGB Conc 37.5 GM/DL (32-36); Mean Corpuscular Hemoglobin 37 PG (27-34); Mean Corpuscular Volume 98.9 FL (87-102); Mean Platelet Volume 10.2 FL (9.6-12.0); Monocytes # 0.6 10*3/uL (0.11-0.8); Monocytes % 6.3 % (1.7-12.7); Neutrophils # 7.5 10*3/uL (1.4-7.4); Neutrophils % 80.6 % (38.7-73.9); Platelet Count 103 T/CUMM (130-400); Red Blood Count 1.78 MC/CUMM (3.8-5.5); White Blood Count 9.3 T/CUMM (4-12)
[2017-06-02 06:13] LABS: Hematocrit 17.6 VOL% (35.7-47.0)
[2017-06-02 06:17] LABS: Magnesium 1.3 MG/DL (1.8-2.4); Osmolality,Calculated 291.8 MOS/KG (273-304); Potassium 3.3 MMOL/L (3.5-5.1)
[2017-06-02 06:31] LABS: Band Neutrophils 3 % (0-10); Lymphocytes 7 % (20-55); Segmented Neutrophils 85 % (50-85); Total Cells Counted 100
[2017-06-02 06:32] LABS: Burr Cells Few
[2017-06-02 06:35] LABS: Platelet Estimate Decreased
[2017-06-02 07:06] LABS: Basophils % 0.1 % (0.0-0.8); Eosinophils # 0.1 10*3/uL (0.0-0.87); Eosinophils % 0.4 % (0.00-10.9); Hematocrit 24.9 VOL% (35.7-47.0); Hemoglobin 7.8 GM/DL (12.0-16.0); Immature Granulocytes % 0.6 %; Immature Granulocytes Absolute 0.07 #; Lymphocytes # 1.2 10*3/uL (1.4-4.0); Lymphocytes % 9.9 % (21.3-54.2); Mean Corpuscular HGB Conc 31.3 GM/DL (32-36); Mean Corpuscular Hemoglobin 30 PG (27-34); Mean Corpuscular Volume 94.7 FL (87-102); Mean Platelet Volume 10.2 FL (9.6-12.0); Monocytes # 0.7 10*3/uL (0.11-0.8); Monocytes % 5.8 % (1.7-12.7); Neutrophils # 10.3 10*3/uL (1.4-7.4); Neutrophils % 83.2 % (38.7-73.9); Platelet Count 165 T/CUMM (130-400); Red Blood Count 2.63 MC/CUMM (3.8-5.5); Red Cell Distribution Width 13.1 % (9.3-17.3); White Blood Count 12.4 T/CUMM (4-12)
[2017-06-02 07:12] LABS: INR 2.7
[2017-06-02] MEDS: ALBUTEROL/IPRATROPIUM 3 ML NEB RESP TX SCH ×4 (07:15→20:22)
[2017-06-02 07:27] LABS: PT Patient Result 27.6 SECS
[2017-06-02 07:29] LABS: Band Neutrophils 4 % (0-10); Hypochromasia 1+; Lymphocytes 10 % (20-55); Segmented Neutrophils 78 % (50-85); Total Cells Counted 100
[2017-06-02 07:30] LABS: Microcytosis Slight; Platelet Estimate Adequate
[2017-06-02 07:32] LABS: Magnesium 1.8 MG/DL (1.8-2.4); Osmolality,Calculated 298.6 MOS/KG (273-304); Potassium 3.1 MMOL/L (3.5-5.1)
[2017-06-02] MEDS: POTASSIUM CHLORIDE RIDER 10 MEQ in PREMIX 1 EACH IV PRN ×4 (07:50→11:36)
[2017-06-02] MEDS: FUROSEMIDE 40 MG TABLET PO SCH (09:56)
[2017-06-02] MEDS: CARVEDILOL 25 MG TABLET PO SCH ×2 (09:57→20:23)
[2017-06-02] MEDS: LANSOPRAZOLE ODT 30 MG TABLET PO SCH (09:57)
[2017-06-02] MEDS: POTASSIUM CHLORIDE 20 MEQ TABLET PO SCH (09:57)
[2017-06-02] MEDS: LEVOTHYROXINE 125 MCG TABLET PO SCH (09:57)
[2017-06-02] MEDS: ATORVASTATIN 40 MG TABLET PO SCH (09:57)
[2017-06-02] MEDS: OSELTAMIVIR 6 MG/ML 60 ML/BOTTLE PO SCH ×2 (10:04→20:23)
[2017-06-02] MEDS: MAGNESIUM SULF RIDER 2 GM in PREMIX 1 EACH IV PRN (10:48)
[2017-06-02] MEDS: FLUCONAZOLE INJ 100 MG in IV BAG 1 EACH IV SCH (13:56)
[2017-06-02] MEDS: WARFARIN 5 MG TABLET PO SCH (17:40)
[2017-06-02] MEDS: AZITHROMYCIN INJ 500 MG in SODIUM CHLORIDE 0.9% 250 ML IV SCH (19:39)
[2017-06-02] MEDS: cefTRIAXone 1,000 MG in SYRINGE 1 EACH IV SCH (19:39)
[2017-06-03] MEDS: INSULIN LISPRO 100 UNIT/ML SUBCUT SCH ×4 (00:09→18:36)
[2017-06-03] MEDS: ACETYLCYSTEINE 20% 800 MG/4 ML VIAL RESP TX SCH ×4 (00:48→20:15)
[2017-06-03] MEDS: PROPOFOL 1,000 MG/100 ML BOTTLE IV SCH ×6 (01:20→20:29)
[2017-06-03 02:29] LABS: ABG Base Excess 1.4 MMOL/L (-2.5-2.5); ABG HCO3 26.5 MMOL/L (20-26); ABG PCO2 43.9 MM HG (35-48); ABG PH 7.398 (7.35-7.45); ABG PO2 94.2 MM HG (80-95); ABG TCO2 27.8 MMOL/L (23-27); Allen Test Positive; Pt O2 Delivery Device Ventilator
[2017-06-03] MEDS: SODIUM CHLORIDE 0.9% 1,000 ML IV SCH ×2 (04:08→16:15)
[2017-06-03 05:35] LABS: Basophils % 0.1 % (0.0-0.8); Eosinophils # 0.2 10*3/uL (0.0-0.87); Eosinophils % 1.6 % (0.00-10.9); Hematocrit 28.1 VOL% (35.7-47.0); Hemoglobin 8.6 GM/DL (12.0-16.0); Immature Granulocytes % 0.8 %; Immature Granulocytes Absolute 0.12 #; Lymphocytes # 1.4 10*3/uL (1.4-4.0); Lymphocytes % 10.1 % (21.3-54.2); Mean Corpuscular HGB Conc 30.6 GM/DL (32-36); Mean Corpuscular Hemoglobin 30 PG (27-34); Mean Corpuscular Volume 97.9 FL (87-102); Monocytes # 1.3 10*3/uL (0.11-0.8); Monocytes % 9.1 % (1.7-12.7); Neutrophils # 11.1 10*3/uL (1.4-7.4); Neutrophils % 78.3 % (38.7-73.9); Platelet Count 171 T/CUMM (130-400); Red Blood Count 2.87 MC/CUMM (3.8-5.5); White Blood Count 14.2 T/CUMM (4-12)
[2017-06-03] MEDS: LEVOTHYROXINE 125 MCG TABLET PO SCH (06:08)
[2017-06-03 06:10] LABS: Calcium 7.5 MG/DL (8.5-10.1); Magnesium 2.1 MG/DL (1.8-2.4); Osmolality,Calculated 294.7 MOS/KG (273-304); Potassium 3.9 MMOL/L (3.5-5.1)
[2017-06-03 06:45] LABS: % Iron Saturation 6.2 % (18-50); Ferritin 86.7 ng/ml (8-252)
[2017-06-03] MEDS: ALBUTEROL/IPRATROPIUM 3 ML NEB RESP TX SCH ×4 (07:48→20:15)
[2017-06-03 08:06] LABS: INR 2.7
[2017-06-03 08:14] LABS: PT Patient Result 27.3 SECS
[2017-06-03] MEDS: FUROSEMIDE 40 MG TABLET PO SCH (08:43)
[2017-06-03] MEDS: CARVEDILOL 25 MG TABLET PO SCH ×2 (08:43→22:01)
[2017-06-03] MEDS: ATORVASTATIN 40 MG TABLET PO SCH (08:43)
[2017-06-03] MEDS: LANSOPRAZOLE ODT 30 MG TABLET PO SCH (08:44)
[2017-06-03] MEDS: POTASSIUM CHLORIDE 20 MEQ TABLET PO SCH (08:44)
[2017-06-03] MEDS: OSELTAMIVIR 6 MG/ML 60 ML/BOTTLE PO SCH ×2 (08:45→22:01)
[2017-06-03] MEDS: FLUCONAZOLE INJ 100 MG in IV BAG 1 EACH IV SCH (13:21)
[2017-06-03] MEDS: WARFARIN 5 MG TABLET PO SCH (18:36)
[2017-06-03] MEDS: AZITHROMYCIN INJ 500 MG in SODIUM CHLORIDE 0.9% 250 ML IV SCH (19:10)
[2017-06-03] MEDS: cefTRIAXone 1,000 MG in SYRINGE 1 EACH IV SCH (20:20)
[2017-06-04] MEDS: INSULIN LISPRO 100 UNIT/ML SUBCUT SCH ×4 (00:01→18:28)
[2017-06-04] MEDS: PROPOFOL 1,000 MG/100 ML BOTTLE IV SCH ×5 (00:02→15:30)
[2017-06-04] MEDS: ACETYLCYSTEINE 20% 800 MG/4 ML VIAL RESP TX SCH ×4 (01:49→19:31)
[2017-06-04 02:49] LABS: ABG Base Excess 0.4 MMOL/L (-2.5-2.5); ABG HCO3 24.8 MMOL/L (20-26); ABG Oxygen Saturation 96.7 % (95-100); ABG PH 7.406 (7.35-7.45); ABG PO2 83.6 MM HG (80-95); ABG TCO2 23.2 MMOL/L (23-27); Allen Test Positive; Pt O2 Delivery Device Ventilator
[2017-06-04 05:26] LABS: Basophils % 0.2 % (0.0-0.8); Eosinophils # 0.2 10*3/uL (0.0-0.87); Eosinophils % 1.8 % (0.00-10.9); Hematocrit 24.2 VOL% (35.7-47.0); Hemoglobin 7.6 GM/DL (12.0-16.0); Immature Granulocytes % 1.3 %; Immature Granulocytes Absolute 0.16 #; Lymphocytes # 1.2 10*3/uL (1.4-4.0); Lymphocytes % 9.8 % (21.3-54.2); Mean Corpuscular HGB Conc 31.4 GM/DL (32-36); Mean Corpuscular Hemoglobin 30 PG (27-34); Mean Corpuscular Volume 95.7 FL (87-102); Mean Platelet Volume 10.1 FL (9.6-12.0); Monocytes # 1.1 10*3/uL (0.11-0.8); Monocytes % 8.5 % (1.7-12.7); Neutrophils # 9.9 10*3/uL (1.4-7.4); Neutrophils % 78.4 % (38.7-73.9); Platelet Count 211 T/CUMM (130-400); Red Blood Count 2.53 MC/CUMM (3.8-5.5); Red Cell Distribution Width 13.3 % (9.3-17.3); White Blood Count 12.5 T/CUMM (4-12)
[2017-06-04 05:56] LABS: Calcium 7.4 MG/DL (8.5-10.1); Osmolality,Calculated 299.4 MOS/KG (273-304); Potassium 3.3 MMOL/L (3.5-5.1)
[2017-06-04 05:57] LABS: INR 3.6
[2017-06-04] MEDS: SODIUM CHLORIDE 0.9% 1,000 ML IV SCH ×4 (06:12→21:01)
[2017-06-04 06:13] LABS: PT Patient Result 36.1 SECS; Partial Thromboplastin Time 75.8 SECS (0-40)
[2017-06-04] MEDS: LEVOTHYROXINE 125 MCG TABLET PO SCH (06:17)
[2017-06-04] MEDS: POTASSIUM CHLORIDE RIDER 10 MEQ in PREMIX 1 EACH IV PRN ×4 (06:42→09:59)
[2017-06-04] MEDS: ALBUTEROL/IPRATROPIUM 3 ML NEB RESP TX SCH ×4 (07:47→19:31)
[2017-06-04] MEDS: POTASSIUM CHLORIDE 20 MEQ TABLET PO SCH (09:29)
[2017-06-04] MEDS: ATORVASTATIN 40 MG TABLET PO SCH (09:29)
[2017-06-04] MEDS: LANSOPRAZOLE ODT 30 MG TABLET PO SCH (09:29)
[2017-06-04] MEDS: FUROSEMIDE 40 MG TABLET PO SCH (09:29)
[2017-06-04] MEDS: CARVEDILOL 25 MG TABLET PO SCH ×2 (09:30→21:02)
[2017-06-04] MEDS: OSELTAMIVIR 6 MG/ML 60 ML/BOTTLE PO SCH ×2 (09:30→21:01)
[2017-06-04] MEDS: FLUCONAZOLE INJ 100 MG in IV BAG 1 EACH IV SCH (13:52)
[2017-06-04] MEDS: AZITHROMYCIN INJ 500 MG in SODIUM CHLORIDE 0.9% 250 ML IV SCH (18:28)
[2017-06-04] MEDS: cefTRIAXone 1,000 MG in SYRINGE 1 EACH IV SCH (21:01)
[2017-06-05] MEDS: INSULIN LISPRO 100 UNIT/ML SUBCUT SCH ×4 (00:53→18:08)
[2017-06-05] MEDS: ACETYLCYSTEINE 20% 800 MG/4 ML VIAL RESP TX SCH ×4 (01:30→19:21)
[2017-06-05 02:57] LABS: Allen Test Positive; Pt O2 Delivery Device Ventilator
[2017-06-05 02:58] LABS: ABG Base Excess -0.6 MMOL/L (-2.5-2.5); ABG HCO3 23.9 MMOL/L (20-26); ABG PCO2 44.4 MM HG (35-48); ABG PH 7.356 (7.35-7.45); ABG TCO2 23.5 MMOL/L (23-27)
[2017-06-05 04:03] LABS: Basophils % 0.1 % (0.0-0.8); Eosinophils # 0.1 10*3/uL (0.0-0.87); Eosinophils % 0.4 % (0.00-10.9); Hemoglobin 7.7 GM/DL (12.0-16.0); Immature Granulocytes % 1.2 %; Immature Granulocytes Absolute 0.16 #; Lymphocytes # 0.8 10*3/uL (1.4-4.0); Lymphocytes % 6.5 % (21.3-54.2); Mean Corpuscular HGB Conc 30.8 GM/DL (32-36); Mean Corpuscular Hemoglobin 30 PG (27-34); Mean Corpuscular Volume 95.8 FL (87-102); Mean Platelet Volume 9.7 FL (9.6-12.0); Monocytes % 7.6 % (1.7-12.7); Neutrophils # 10.8 10*3/uL (1.4-7.4); Neutrophils % 84.2 % (38.7-73.9); Platelet Count 286 T/CUMM (130-400); Red Blood Count 2.61 MC/CUMM (3.8-5.5); Red Cell Distribution Width 13.4 % (9.3-17.3); White Blood Count 12.8 T/CUMM (4-12)
[2017-06-05] MEDS: SODIUM CHLORIDE 0.9% 1,000 ML IV SCH (04:40)
[2017-06-05] MEDS: PROPOFOL 1,000 MG/100 ML BOTTLE IV SCH ×3 (04:41→13:39)
[2017-06-05 04:50] LABS: Calcium 7.6 MG/DL (8.5-10.1); Magnesium 2.1 MG/DL (1.8-2.4); Osmolality,Calculated 304.3 MOS/KG (273-304); Potassium 3.6 MMOL/L (3.5-5.1)
[2017-06-05 05:42] LABS: Eosinophils 2 % (0-10); Hypochromasia 1+; Lymphocytes 8 % (20-55); Microcytosis Slight; Segmented Neutrophils 87 % (50-85); Total Cells Counted 100
[2017-06-05] MEDS: POTASSIUM CHLORIDE RIDER 10 MEQ in PREMIX 1 EACH IV PRN ×2 (06:14→07:25)
[2017-06-05] MEDS: LEVOTHYROXINE 125 MCG TABLET PO SCH (06:14)
[2017-06-05] MEDS: ALBUTEROL/IPRATROPIUM 3 ML NEB RESP TX SCH ×4 (07:26→19:30)
[2017-06-05] MEDS: FUROSEMIDE 40 MG TABLET PO SCH (09:45)
[2017-06-05] MEDS: ATORVASTATIN 40 MG TABLET PO SCH (09:46)
[2017-06-05] MEDS: POTASSIUM CHLORIDE 20 MEQ TABLET PO SCH (09:46)
[2017-06-05] MEDS: LANSOPRAZOLE ODT 30 MG TABLET PO SCH (09:46)
[2017-06-05] MEDS: CARVEDILOL 25 MG TABLET PO SCH ×2 (09:46→20:40)
[2017-06-05] MEDS ORDERED: SODIUM CHLORIDE 0.9% 1,000 ML IV PRN (10:57)
[2017-06-05] MEDS: FLUCONAZOLE INJ 100 MG in IV BAG 1 EACH IV SCH (13:38)
[2017-06-05] MEDS: AZITHROMYCIN INJ 500 MG in SODIUM CHLORIDE 0.9% 250 ML IV SCH (20:26)
[2017-06-05] MEDS: cefTRIAXone 1,000 MG in SYRINGE 1 EACH IV SCH (20:26)
[2017-06-06] MEDS: ACETYLCYSTEINE 20% 800 MG/4 ML VIAL RESP TX SCH ×4 (00:20→20:13)
[2017-06-06] MEDS: INSULIN LISPRO 100 UNIT/ML SUBCUT SCH ×4 (01:53→17:59)
[2017-06-06 03:54] LABS: ABG Base Excess -0.8 MMOL/L (-2.5-2.5); ABG HCO3 23.8 MMOL/L (20-26); ABG Oxygen Saturation 98.6 % (95-100); ABG PCO2 44.6 MM HG (35-48); ABG PH 7.354 (7.35-7.45); ABG TCO2 22.9 MMOL/L (23-27)
[2017-06-06 05:51] LABS: Basophils % 0.2 % (0.0-0.8); Eosinophils # 0.1 10*3/uL (0.0-0.87); Eosinophils % 1.1 % (0.00-10.9); Hematocrit 30.3 VOL% (35.7-47.0); Hemoglobin 9.7 GM/DL (12.0-16.0); Immature Granulocytes % 1.7 %; Immature Granulocytes Absolute 0.22 #; Lymphocytes # 0.9 10*3/uL (1.4-4.0); Lymphocytes % 7.1 % (21.3-54.2); Mean Corpuscular Hemoglobin 30 PG (27-34); Mean Corpuscular Volume 93.2 FL (87-102); Mean Platelet Volume 9.4 FL (9.6-12.0); Monocytes # 1.1 10*3/uL (0.11-0.8); Monocytes % 8.5 % (1.7-12.7); Neutrophils # 10.5 10*3/uL (1.4-7.4); Neutrophils % 81.4 % (38.7-73.9); Platelet Count 318 T/CUMM (130-400); Red Blood Count 3.25 MC/CUMM (3.8-5.5); Red Cell Distribution Width 16.2 % (9.3-17.3); White Blood Count 12.9 T/CUMM (4-12)
[2017-06-06] MEDS: LEVOTHYROXINE 125 MCG TABLET PO SCH (06:32)
[2017-06-06 06:38] LABS: Calcium 7.7 MG/DL (8.5-10.1); Magnesium 2.1 MG/DL (1.8-2.4); Osmolality,Calculated 304.4 MOS/KG (273-304); Potassium 3.8 MMOL/L (3.5-5.1)
[2017-06-06] MEDS: PROPOFOL 1,000 MG/100 ML BOTTLE IV SCH ×3 (07:31→23:56)
[2017-06-06] MEDS: POTASSIUM CHLORIDE RIDER 10 MEQ in PREMIX 1 EACH IV PRN ×2 (07:41→08:42)
[2017-06-06] MEDS: ALBUTEROL/IPRATROPIUM 3 ML NEB RESP TX SCH ×4 (07:43→20:13)
[2017-06-06] MEDS: POTASSIUM CHLORIDE 20 MEQ TABLET PO SCH (10:01)
[2017-06-06] MEDS: CARVEDILOL 25 MG TABLET PO SCH ×2 (10:02→21:15)
[2017-06-06] MEDS: FUROSEMIDE 40 MG/4 ML VIAL IV SCH (10:02)
[2017-06-06] MEDS: ATORVASTATIN 40 MG TABLET PO SCH (10:02)
[2017-06-06] MEDS: LANSOPRAZOLE ODT 30 MG TABLET PO SCH (10:02)
[2017-06-06] MEDS: FLUCONAZOLE INJ 100 MG in IV BAG 1 EACH IV SCH (13:36)
[2017-06-06] MEDS: AZITHROMYCIN INJ 500 MG in SODIUM CHLORIDE 0.9% 250 ML IV SCH (19:18)
[2017-06-06] MEDS: cefTRIAXone 1,000 MG in SYRINGE 1 EACH IV SCH (20:30)
[2017-06-07] MEDS: INSULIN LISPRO 100 UNIT/ML SUBCUT SCH ×4 (00:03→19:05)
[2017-06-07] MEDS: ACETYLCYSTEINE 20% 800 MG/4 ML VIAL RESP TX SCH ×4 (00:29→19:42)
[2017-06-07 03:40] LABS: Allen Test Positive; Pt O2 Delivery Device Ventilator
[2017-06-07 03:41] LABS: ABG Base Excess 2.7 MMOL/L (-2.5-2.5); ABG HCO3 26.8 MMOL/L (20-26); ABG Oxygen Saturation 97.1 % (95-100); ABG PCO2 44.9 MM HG (35-48); ABG PH 7.401 (7.35-7.45); ABG PO2 83.9 MM HG (80-95); ABG TCO2 25.5 MMOL/L (23-27)
[2017-06-07 04:05] LABS: Basophils % 0.2 % (0.0-0.8); Eosinophils # 0.3 10*3/uL (0.0-0.87); Eosinophils % 3.5 % (0.00-10.9); Hematocrit 31.6 VOL% (35.7-47.0); Immature Granulocytes % 1.9 %; Immature Granulocytes Absolute 0.18 #; Lymphocytes # 1.2 10*3/uL (1.4-4.0); Lymphocytes % 12.7 % (21.3-54.2); Mean Corpuscular HGB Conc 31.6 GM/DL (32-36); Mean Corpuscular Hemoglobin 29 PG (27-34); Mean Corpuscular Volume 91.9 FL (87-102); Mean Platelet Volume 9.7 FL (9.6-12.0); Monocytes % 9.8 % (1.7-12.7); Neutrophils % 71.9 % (38.7-73.9); Platelet Count 311 T/CUMM (130-400); Red Blood Count 3.44 MC/CUMM (3.8-5.5); Red Cell Distribution Width 15.5 % (9.3-17.3); White Blood Count 9.7 T/CUMM (4-12)
[2017-06-07] MEDS: PROPOFOL 1,000 MG/100 ML BOTTLE IV SCH ×4 (05:03→21:45)
[2017-06-07 05:09] LABS: Calcium 7.5 MG/DL (8.5-10.1); Magnesium 2.1 MG/DL (1.8-2.4); Osmolality,Calculated 305.3 MOS/KG (273-304); Potassium 3.6 MMOL/L (3.5-5.1)
[2017-06-07] MEDS: LEVOTHYROXINE 125 MCG TABLET PO SCH (06:03)
[2017-06-07] MEDS: POTASSIUM CHLORIDE RIDER 10 MEQ in PREMIX 1 EACH IV PRN ×2 (06:05→07:17)
[2017-06-07] MEDS: ALBUTEROL/IPRATROPIUM 3 ML NEB RESP TX SCH ×4 (07:18→19:42)
[2017-06-07] MEDS: MORPHINE 2 MG/1 ML SYRINGE IV PRN (09:27)
[2017-06-07] MEDS: POTASSIUM CHLORIDE 20 MEQ TABLET PO SCH (10:13)
[2017-06-07] MEDS: ATORVASTATIN 40 MG TABLET PO SCH (10:14)
[2017-06-07] MEDS: CARVEDILOL 25 MG TABLET PO SCH ×2 (10:14→21:33)
[2017-06-07] MEDS: LANSOPRAZOLE ODT 30 MG TABLET PO SCH (10:14)
[2017-06-07] MEDS: VANCOMYCIN INJ 1,500 MG in SODIUM CHLORIDE 0.9% 500 ML IV SCH ×2 (10:14→21:34)
[2017-06-07] MEDS: FUROSEMIDE 40 MG/4 ML VIAL IV SCH (10:15)
[2017-06-07] MEDS: FLUCONAZOLE INJ 100 MG in IV BAG 1 EACH IV SCH (13:54)
[2017-06-07] MEDS: AZITHROMYCIN INJ 500 MG in SODIUM CHLORIDE 0.9% 250 ML IV SCH (19:06)
[2017-06-07] MEDS: cefTRIAXone 1,000 MG in SYRINGE 1 EACH IV SCH (20:32)
[2017-06-08] MEDS: INSULIN LISPRO 100 UNIT/ML SUBCUT SCH ×4 (00:09→18:00)
[2017-06-08] MEDS: ACETYLCYSTEINE 20% 800 MG/4 ML VIAL RESP TX SCH ×4 (00:26→18:57)
[2017-06-08 03:24] LABS: ABG Oxygen Saturation 98.5 % (95-100); ABG PCO2 45.5 MM HG (35-48); ABG PH 7.422 (7.35-7.45); ABG PO2 135.4 MM HG (80-95); ABG TCO2 30.4 MMOL/L (23-27); Pt O2 Delivery Device Ventilator
[2017-06-08] MEDS: PROPOFOL 1,000 MG/100 ML BOTTLE IV SCH ×3 (04:53→21:54)
[2017-06-08 05:22] LABS: Basophils % 0.3 % (0.0-0.8); Eosinophils # 0.4 10*3/uL (0.0-0.87); Hematocrit 32.2 VOL% (35.7-47.0); Hemoglobin 9.8 GM/DL (12.0-16.0); Immature Granulocytes % 3.5 %; Immature Granulocytes Absolute 0.34 #; Lymphocytes # 1.3 10*3/uL (1.4-4.0); Lymphocytes % 13.1 % (21.3-54.2); Mean Corpuscular HGB Conc 30.4 GM/DL (32-36); Mean Corpuscular Hemoglobin 29 PG (27-34); Mean Corpuscular Volume 95.3 FL (87-102); Mean Platelet Volume 10.6 FL (9.6-12.0); Monocytes # 0.8 10*3/uL (0.11-0.8); Monocytes % 8.6 % (1.7-12.7); Neutrophils # 6.8 10*3/uL (1.4-7.4); Neutrophils % 70.5 % (38.7-73.9); Platelet Count 248 T/CUMM (130-400); Red Blood Count 3.38 MC/CUMM (3.8-5.5); Red Cell Distribution Width 14.8 % (9.3-17.3); White Blood Count 9.7 T/CUMM (4-12)
[2017-06-08 06:00] LABS: Calcium 7.8 MG/DL (8.5-10.1); Magnesium 2.2 MG/DL (1.8-2.4); Osmolality,Calculated 302.6 MOS/KG (273-304); Potassium 4.2 MMOL/L (3.5-5.1)
[2017-06-08] MEDS: LEVOTHYROXINE 125 MCG TABLET PO SCH (06:35)
[2017-06-08] MEDS ORDERED: MORPHINE 2 MG/1 ML SYRINGE IV PRN (06:39)
[2017-06-08] MEDS: ALBUTEROL/IPRATROPIUM 3 ML NEB RESP TX SCH ×4 (07:28→18:57)
[2017-06-08] MEDS: POTASSIUM CHLORIDE 20 MEQ TABLET PO SCH (08:36)
[2017-06-08] MEDS: LANSOPRAZOLE ODT 30 MG TABLET PO SCH (08:36)
[2017-06-08] MEDS: CARVEDILOL 25 MG TABLET PO SCH ×2 (08:36→21:51)
[2017-06-08] MEDS: FUROSEMIDE 40 MG/4 ML VIAL IV SCH (08:36)
[2017-06-08] MEDS: ATORVASTATIN 40 MG TABLET PO SCH (08:36)
[2017-06-08] MEDS: VANCOMYCIN INJ 1,500 MG in SODIUM CHLORIDE 0.9% 500 ML IV SCH ×2 (08:37→21:52)
[2017-06-08 11:05] LABS: INR 3.4
[2017-06-08 11:06] LABS: PT Patient Result 34.1 SECS
[2017-06-08] MEDS: NYSTATIN POWDER 15 GM BOTTLE TOP SCH ×2 (11:19→21:53)
[2017-06-08] MEDS: FLUCONAZOLE INJ 100 MG in IV BAG 1 EACH IV SCH (13:17)
[2017-06-09] MEDS: INSULIN LISPRO 100 UNIT/ML SUBCUT SCH ×4 (00:10→17:59)
[2017-06-09] MEDS: ACETYLCYSTEINE 20% 800 MG/4 ML VIAL RESP TX SCH ×3 (00:18→12:01)
[2017-06-09] MEDS: PROPOFOL 1,000 MG/100 ML BOTTLE IV SCH ×3 (04:10→14:14)
[2017-06-09 04:42] LABS: ABG Base Excess 6.5 MMOL/L (-2.5-2.5); ABG HCO3 31.3 MMOL/L (20-26); ABG PO2 95.3 MM HG (80-95); ABG TCO2 32.7 MMOL/L (23-27); Allen Test Positive; Pt O2 Delivery Device Ventilator
[2017-06-09 04:43] LABS: ABG Oxygen Saturation 97.6 % (95-100)
[2017-06-09 05:11] LABS: Basophils % 0.3 % (0.0-0.8); Eosinophils # 0.3 10*3/uL (0.0-0.87); Hematocrit 30.8 VOL% (35.7-47.0); Hemoglobin 9.5 GM/DL (12.0-16.0); Immature Granulocytes % 4.1 %; Immature Granulocytes Absolute 0.38 #; Lymphocytes # 1.3 10*3/uL (1.4-4.0); Lymphocytes % 14.3 % (21.3-54.2); Mean Corpuscular HGB Conc 30.8 GM/DL (32-36); Mean Corpuscular Hemoglobin 29 PG (27-34); Mean Corpuscular Volume 93.3 FL (87-102); Mean Platelet Volume 9.2 FL (9.6-12.0); Monocytes # 0.7 10*3/uL (0.11-0.8); Monocytes % 7.4 % (1.7-12.7); Neutrophils # 6.6 10*3/uL (1.4-7.4); Neutrophils % 70.9 % (38.7-73.9); Platelet Count 378 T/CUMM (130-400); Red Cell Distribution Width 14.1 % (9.3-17.3); White Blood Count 9.3 T/CUMM (4-12)
[2017-06-09 05:32] LABS: INR 2.3; PT Patient Result 23.9 SECS
[2017-06-09 05:42] LABS: Calcium 7.9 MG/DL (8.5-10.1); Magnesium 2.1 MG/DL (1.8-2.4); Osmolality,Calculated 298.6 MOS/KG (273-304); Potassium 3.6 MMOL/L (3.5-5.1)
[2017-06-09] MEDS: LEVOTHYROXINE 125 MCG TABLET PO SCH (06:20)
[2017-06-09] MEDS: ALBUTEROL/IPRATROPIUM 3 ML NEB RESP TX SCH ×3 (07:44→15:24)
[2017-06-09] MEDS: FUROSEMIDE 40 MG/4 ML VIAL IV SCH (09:17)
[2017-06-09] MEDS: CARVEDILOL 25 MG TABLET PO SCH (09:18)
[2017-06-09] MEDS: LANSOPRAZOLE ODT 30 MG TABLET PO SCH (09:18)
[2017-06-09] MEDS: ATORVASTATIN 40 MG TABLET PO SCH (09:18)
[2017-06-09] MEDS: VANCOMYCIN INJ 1,500 MG in SODIUM CHLORIDE 0.9% 500 ML IV SCH (09:18)
[2017-06-09] MEDS: POTASSIUM CHLORIDE 20 MEQ TABLET PO SCH (09:18)
[2017-06-09] MEDS: NYSTATIN POWDER 15 GM BOTTLE TOP SCH (09:21)
[2017-06-09] MEDS: FLUCONAZOLE INJ 100 MG in IV BAG 1 EACH IV SCH (13:51)
[2017-06-09 17:48] VITALS: BP 126/63
[2017-06-09] MEDS ORDERED: WARFARIN 1 MG TABLET PO SCH (18:00)
[2017-06-10] MEDS ORDERED: VANCOMYCIN INJ 1,500 MG in SODIUM CHLORIDE 0.9% 500 ML IV SCH (09:00)
== END 2017-06-09 18:00 | DRG 853 ==
LOC: EDBD → EDUNIT# → N.ED 15:51 → N.EDINP 18:03 → SUATTDRO 18:03 → N.EDINP 18:39 → N.5E 18:42 → N.ICU 05-30 13:18
PROVIDERS: ADMIT Pediatrics; ATTEND Internal Medicine